=== PATIENT | female | born 1955 | race Caucasian/White ===

== ENCOUNTER 2018-08-03 08:24 | Inpatient (IN) | payer MEDICAID ==
[~2018-08-03] VITALS: Ht 157.5 cm; Wt 58.7 kg
--- NOTE | 2018-08-03 08:24 | NUR ---
PATIENT BIBA TO BED 7 AT THIS TIME.
[2018-08-03 08:27] VITALS: BP 141/83
--- NOTE | 2018-08-03 08:42 | NUR ---
63/F BIBA FROM HOME. WITNESSED SYNCOPE WHILE SEATED IN COUGH---NO INJURY/TRAUMA MOVING ALL EXTREMITIES, FULL CLEAR SPEECH, NO FACIAL ASYMMETRY NOTED PT'S MOTHER PASSED AT HOME LAST NIGHT; ABOUT 2AM MORTUARY TOOK BODY FROM HOME . PATIENT STATES HEADACHE OF 8/10 AT THIS TIME. PATIENT POSITIONED FOR COMFORT; HOB ELEVATED; BEDRAILS UP X2; BED DOWN. ER MD MADE AWARE OF PT STATUS.
--- NOTE | 2018-08-03 08:48 | NUR ---
PT'S UNABLE TO PROVIDE URINE AT THIS TIME.
[2018-08-03] MEDS ORDERED: MORPHINE SULFATE 4 MG/ML SYR IVP ONE (09:00)
--- NOTE | 2018-08-03 09:11 | NUR ---
PT AMB WITH FAMILY TO RESTROOM. Addendum: 08/03/18 at 1030 by MED1 urine specimen sent to lab.
[2018-08-03 09:15] LABS: BASOPHILS % (AUTO) 0.5 % (0.0-2.0); EOSINOPHILS # (AUTO) 0.1 K/uL (0-0.4); EOSINOPHILS % (AUTO) 1.9 % (0.0-4.0); HEMATOCRIT 36.5 % (36-48); HEMOGLOBIN 12.1 g/dL (12.0-16.0); LYMPHOCYTES % (AUTO) 32.4 % (20.5-51.1); MEAN CORPUSCULAR HEMOGLOBIN 31 pg (27-31); MEAN CORPUSCULAR HGB CONC 33 g/dL (33-37); MEAN CORPUSCULAR VOLUME 93.6 fL (80-94); MONOCYTES # (AUTO) 0.6 K/uL (0.8-1.0); MONOCYTES % (AUTO) 10.1 % (1.7-9.3); NEUTROPHILS # (AUTO) 3.4 K/uL (1.8-7.7); NEUTROPHILS % (AUTO) 55.1 % (42.2-75.2); PLATELET COUNT (AUTO) 294 K/uL (140-450); RED CELL DISTRIBUTION WIDTH 12.8 % (11.6-13.7); WHITE BLOOD COUNT (AUTO) 6.3 K/uL (4.8-10.8)
[2018-08-03 09:22] LABS: ANION GAP 14.3 (8-16); CARBON DIOXIDE 26.2 mmol/L (21-32); CREATININE 0.7 mg/dL (0.6-1.3); POTASSIUM 3.5 mmol/L (3.5-5.1)
[2018-08-03 09:30] LABS: TOTAL BILIRUBIN 0.2 mg/dL (0.0-1.0)
[2018-08-03 09:31] LABS: ALBUMIN 3.7 g/dL (3.4-5.0)
[2018-08-03 10:10] LABS: APPEARANCE,URINE CLEAR (CLEAR); BILIRUBIN,URINE NEGATIVE (NEGATIVE); BLOOD, URINE TRACE-L (NEGATIVE); COLOR,URINE YELLOW (YELLOW); LEUKOCYTE ESTERASE ,URINE 2+ (NEGATIVE); NITRITE, URINE NEGATIVE (NEGATIVE); UGLUCOSE NEGATIVE (NEGATIVE)
--- NOTE | 2018-08-03 10:13 | NUR ---
PATIENT TAKEN FOR CT SCAN VIA [facility] AT THIS TIME.
[2018-08-03 10:18] LABS: RBC,URINE 0-5 /HPF (0-5)
--- NOTE | 2018-08-03 10:24 | NUR ---
PT RETURNED FROM CT
--- NOTE | 2018-08-03 10:29 | NUR ---
Patient being reevaluated by DR FREEDMAN at bedside.
[2018-08-03] MEDS ORDERED: CEPHALEXIN 500 MG CAP PO ONE (10:40)
[2018-08-03] MEDS ORDERED: ZOLPIDEM 5 MG TAB PO PRN (11:25)
[2018-08-03] MEDS ORDERED: LORazepam 2 MG/ML VIAL IM/IVP PRN (11:25)
[2018-08-03] MEDS ORDERED: DOCUSATE SODIUM 100 MG GELCAP PO PRN (11:25)
[2018-08-03] MEDS ORDERED: HYDROcodone/APAP 5/325 MG 1 TAB TAB PO PRN (11:25)
[2018-08-03] MEDS ORDERED: ACETAMINOPHEN 325 MG TAB PO PRN (11:25)
[2018-08-03] MEDS ORDERED: ONDANSETRON 4 MG/2 ML VIAL IM/IVP PRN (11:25)
[2018-08-03] MEDS ORDERED: NITROGLYCERIN 0.4 MG TAB SL PRN (11:30)
--- NOTE | 2018-08-03 11:50 | NUR ---
Patient will be admitted to care of DR NIXON. Admited to TELE. Will go to room 120B. Belongings list completed. Report to EDIE SYKES.
[2018-08-03 12:00] VITALS: BP 113/53
--- NOTE | 2018-08-03 12:00 | NUR ---
RECEIVED REPORT FROM ER NURSE AT THE BEDSIDE. PT IN HER BED. LYING COMFORTABLY. FAMILY AT THE BEDSIDE. HELPED TO RECEIVE THE HISTORY FROM THE PT. PT STATES TO HAVE SLIGHT HEAVINESS ON HER RT SIDE OF THE FACE, WHILE SHE MOVES HER NECK TO THE RIGHT SIDE. FAMILY MEMBER STATES THAT HER MO YESTERDAY, AND PT HAS NOT BEEN ABLE TO SLEEP. HAS IV ON RT AC 20G, SKIN IS INTACT. PT DENIES ANY CHEST PAIN, HAS O2 SAT [address] CALL LIGHT WITHIN PT REACH. NO SIGN OF DISTRESS NOTED. INFORMED PT TO USE CALL LIGHT FOR ANY HELP. WILL CONTINUE TO MONITOR PT.
[2018-08-03 12:28] LABS: CHOL/HDL RATIO 4.3 (1-4.5); FREE T4 (FREE THYROXINE) 1.16 ng/dL (0.76-1.46); PHOSPHORUS 4.1 mg/dL (2.5-4.9); THYROID STIMULATING HORMONE 2.79 uIU/mL (0.34-3.74)
[2018-08-03] MEDS ORDERED: ATORVASTATIN 20 MG TAB PO SCH (13:00)
[2018-08-03] MEDS ORDERED: MORPHINE SULFATE 2 MG/ML SYR IVP PRN (13:00)
[2018-08-03] MEDS ORDERED: LISINOPRIL 5 MG TAB PO SCH (13:00)
[2018-08-03] MEDS ORDERED: ASPIRIN 81 MG TAB.CHEW PO SCH (13:00)
[2018-08-03] MEDS ORDERED: METOPROLOL 25 MG TAB PO SCH ×2 (13:00)
[2018-08-03] MEDS: NACL 0.9% 1,000 ML IV SCH ×2 (13:30→21:22)
--- NOTE | 2018-08-03 13:36 | NUR ---
ADMINISTERED MEDS TO PT ORDERED. NO SIGN OF DISTRESS. TOLERATED MEDS WELL. SLEEPING AT THIS TIME. CALL LIGHT WITHIN PT REACH. INFORM TO CALL FOR ANY HELP. WILL CONTINUE TO MONITOR PT.
[2018-08-03 16:00] VITALS: BP 102/52
--- NOTE | 2018-08-03 18:30 | NUR ---
RECEIVED TROPONIN LEVEL 0.097 FROM LAB. WENT TO MD TO INFORM TWICE, NOT IN ROOM WILL CHECK INTO MD ROOM AGAIN.
[2018-08-03] MEDS ORDERED: cefTRIAXone 1,000 MG VIAL ONE (18:41)
--- NOTE | 2018-08-03 19:00 | NUR ---
ENDORSED PT TO PM NURSE AT BEDSIDE. PT IN STABLE CONDITION.
--- NOTE | 2018-08-03 19:05 | NUR ---
RECEIVED PT IN STABLE CONDITION FROM AM NURSE. AWAKE,ALERT AND ORIENTED X4, MALAY SLEAKING. ON TELE MONITOR -SR. HAS IVF INFUSING WELL ON THE RT AC G#18. CLEAR AND PATENT. PLAN OF CARE DISCUSSED AND NEED SOME REINFORCEMENT DUE TO LANGUAGE BARRIERS. SKIN INTACT. BED ON LOW POSITION. FREQUENT ROUNDS NEEDED. CALL LIGHT PLACED WITHIN EASY REACH. WILL CONTINUE TO MONITOR.
[2018-08-03 19:45] VITALS: BP 91/48
--- NOTE | 2018-08-03 19:54 | NUR ---
Oswald LEON CAME AND SEEN PT. HE ALSO ABLE TO TALKE TO DR. BOLOM ,RESIDENT REGARDING PT CONDITION.
[2018-08-03] MEDS: METOPROLOL 25 MG TAB PO SCH (20:57)
--- NOTE | 2018-08-03 21:00 | NUR ---
PT IS ASKEEP. NO S/S OF ANY DISCOMFORT NOR PAIN NOTED. WILL CONTINUE TO MONITOR.
--- NOTE | 2018-08-03 22:00 | NUR ---
AWAKE AND ASSISTED UP TO THE BATHROOM. NO DIZZINESS NOTED.
--- NOTE | 2018-08-04 00:30 | NUR ---
ASSISTED TO BATHROOM, VOIDED. STILL WITH SLIGHT DIZZINESS NOTED. INSTRUCTED TO ALWAYS CALL FOR ASSISTANCE DAYNA WHEN GETTING UP AND AMBULATE. VERBALIZED UNDERSTANDING
[2018-08-04 00:50] VITALS: BP 111/49
[2018-08-04] MEDS: NACL 0.9% 1,000 ML IV SCH (00:52)
[2018-08-04 04:00] VITALS: BP 128/57
--- NOTE | 2018-08-04 04:00 | NUR ---
MADE ROUNDS. PT IS ASLEEP. NO DISCOMFORT NOTED.
--- NOTE | 2018-08-04 05:00 | NUR ---
PT IS AWAKE. NO C/O ANY DISCOMFORT NOR PAIN NOTED.
--- NOTE | 2018-08-04 06:41 | NUR ---
PT HAS BEEN STABLE DURING THE NIGHT. JUST NEED STANDBY ASSISTANCE WHEN GETTING UP TO THE BATHROOM.
--- NOTE | 2018-08-04 07:23 | NUR ---
RECEIVED REPORT FROM ENVELOPE FOLD OPERATOR. PT IN STABLE CONDITION. AWAKE,ALERT AND ORIENTED X4, PASHTO SPEAKING. ON TELE MONITOR -SR. HAS IVF INFUSING WELL ON THE RT AC G#18. CLEAR AND PATENT. PLAN OF CARE DISCUSSED AND PT VERBALIZED UNDERSTANDING. SKIN INTACT. BED ON LOW POSITION, ALARM ON FOR PT SAFETY. FREQUENT ROUNDS NEEDED. CALL LIGHT PLACED WITHIN EASY REACH. WILL CONTINUE TO MONITOR.
--- NOTE | 2018-08-04 07:37 | NUR ---
ENDORSED PT IN STABLE CONDITION TO AM NURSE.
[2018-08-04 08:00] VITALS: BP 126/52
--- NOTE | 2018-08-04 08:24 | NUR ---
PATIENT HAS BEEN SCREENED AND CATEGORIZED MODERATE NUTRITION RISK. PATIENT WILL BE SEEN WITHIN 3-5 DAYS OF ADMISSION. 08/05/18[address]
[2018-08-04] MEDS ORDERED: ATORVASTATIN 20 MG TAB PO SCH (09:00)
[2018-08-04] MEDS ORDERED: LACTOBACILLUS RHAMNOSUS GG 1 EACH CAP PO SCH (09:00)
[2018-08-04] MEDS: METOPROLOL 25 MG TAB PO SCH (09:00)
[2018-08-04] MEDS ORDERED: LISINOPRIL 5 MG TAB PO SCH (09:00)
[2018-08-04] MEDS ORDERED: ASPIRIN 81 MG TAB.CHEW PO SCH (09:00)
--- NOTE | 2018-08-04 09:17 | NUR ---
ADMINISTERED MORNING MEDS TO PT. PT TOLERATED THEM WELL. LOPRESSOR AND ZESTRIL WERE HELD DUE TO PT DECREASE IN PT BP. DR IS AWARE AND VERBALIZED TO HOLD MEDS. ALL NEEDS MET. BED IN LOW POSITION, CALL LIGHT WITHIN REACH. FALL RISK PROTOCOL IN PLACE DUE TO PT'S SYNCOPE. WILL CONTINUE TO ROUND FREQUENTLY.
--- NOTE | 2018-08-04 11:22 | NUR ---
PT RESTING IN BED. ALL NEEDS CURRENTLY MET. NO COMPLAINTS OF PAIN OR DISTRESS. NO DIZZINESS AT THIS TIME. BED IN LOW POSITION, CALL LIGHT WITHIN REACH.
[2018-08-04 12:00] VITALS: BP 134/60
--- NOTE | 2018-08-04 13:24 | NUR ---
PT ASLEEP IN BED. NO SIGNS OF PAIN OR DISTRESS NOTED. WILL CONTINUE TO ROUND FREQUENTLY ON PT.
[2018-08-04] MEDS ORDERED: LACT1.4C PO (14:33)
[2018-08-04] MEDS ORDERED: SULF-59 PO (14:33)
[2018-08-04] MEDS ORDERED: LORA0.5T6 PO (14:33)
--- NOTE | 2018-08-04 15:31 | NUR ---
PT IN BED WITH FAMILY PRESENT. PT AWARE THAT DISCHARGE ORDER HAS BEEN PLACED. PT CURRENTLY IN STABLE CONDITION, NO COMPLAINTS OF PAIN. BED IN LOW POSITION.
[2018-08-04 16:00] VITALS: BP 140/54
--- NOTE | 2018-08-04 17:52 | NUR ---
PT DISCHARGED HOME FOR SELF CARE. PT DISCHARGE TEACHING GIVEN TO PT. PT VERBALIZED UNDERSTANDING OF IMPORTANCE OF TAKING PRESCRIBED MEDS. PT ALSO WAS TOLD TO FOLLOW-UP WITH APPOINTMENT MADE FOR HER. SHE ALSO VERBALIZED UNDERSTANDING. PT TOOK ALL PERSONAL BELONGINGS WITH HER. IV REMOVED WITH TIP INTACT. WRIST BANDS REMOVED AND PLACED IN SHRED BIN. DISCHARGE PAPERWORK SIGNED BY PT. PT LEFT HOME WITH FAMILY IN STABLE CONDITION.
--- NOTE | 2018-08-05 10:12 | NUR ---
Plating Department Helper Note: Late entry for 08/04/18: I met with patient and patient's sister Joann Santiago (I verified number with Joann) at bedside. Both speak French. I introduced myself to them and explained my role as a medical researcher. They verbalized understanding. Patient lives at home with her Joann and plans to return there upon discharge. She does not have a pcp at this time. When I asked her why she did not have a pcp. She told me she did not have a reason. I emphasized to her the importance of following up with a physician post discharge and provided her with a list of low cost clinics. She stated she will follow up with a physician post discharge. Prior to hospital admission she was independent with ADLs and did not use any DME at home. She has had good communication with MD and nursing staff. No questions or concerns were reported by patient. Production Support Manager and/or Human Resources Assistant will follow up as needed.
== END 2018-08-04 17:52 | disposition home or self-care (01) | DRG 463 ==
LOC: MED 08:24 → MTU 11:25
PROVIDERS: ADMIT General Practice; ATTEND General Practice
DX: N39.0 Urinary tract infection, site not specified (principal); G90.8 Other disorders of autonomic nervous system; R07.89 Other chest pain; E78.5 Hyperlipidemia, unspecified; Z88.6 Allergy status to analgesic agent; Z79.899 Other long term (current) drug therapy
CPT/HCPCS: 36415; 70450; 71045; 80048; 80076; 81001; 82150; 83036; 83690; 83735; 83880; 84100; 84439; 84443; 84484; 85025; 85379; 85610; 87081; 87086; 93005; 96374; 99285; J0696; J2270; J7030; J7060; Q0092